=== PATIENT | female | born 1935 | race African-American/Black ===

== ENCOUNTER → 2022-04-03 | Day surgery (SDC) | payer OTHER | END | disposition home or self-care (01) | LOC: FMAMMOTONE 12:50 → EDBD 13:00 | PROVIDERS: ATTEND Internal Medicine Geriatric Medicine | PROC: 0HBU3ZX Excision of Left Breast, Percutaneous Approach, Diagnostic (ICD-10-PCS; principal; 2022-04-03) | DX: Z53.8 Procedure and treatment not carried out for other reasons (principal) | CPT/HCPCS: 19081 ==